=== PATIENT | female | born 1990 | race Caucasian/White ===

== ENCOUNTER 2021-05-02 06:34 | Inpatient (IN) ==
[2021-05-02] MEDS ORDERED: CYTOTEC ONE (06:41)
[2021-05-02] MEDS ORDERED: D5 1/2 NS 1,000 ML 1,000 ML IV ONE (06:42)
[2021-05-02] MEDS ORDERED: ANCEF 1 GRAM IV PREMIX* 1 G/50 ML BAG IV ONE (06:42)
[2021-05-02 07:02] VITALS: BP 119/78
[2021-05-02 07:58] LABS: BILIRUBIN,URINE NEGATIVE (NEGATIVE); BLOOD/HEMOGLOBIN,URINE 1+ (NEGATIVE); GLUCOSE, URINE NEGATIVE (NEGATIVE); KETONES,URINE NEGATIVE (NEGATIVE); LEUKOCYTE ESTERASE ,URINE NEGATIVE (NEGATIVE); NITRITES,URINE POSITIVE (NEGATIVE); PROTEIN,URINE NEGATIVE (NEGATIVE); UROBILINOGEN,URINE NORMAL (NORMAL)
[2021-05-02 08:11] LABS: COLOR,URINE YELLOW (YELLOW)
[2021-05-02 08:12] LABS: APPEARANCE,URINE SLIGHTLY HAZY (CLEAR); BACTERIA,URINE 3+ /HPF (NEGATIVE); RBC,URINE 0-2 /HPF (0-3); SQUAMOUS EPITHELIAL CELL,UR FEW /HPF (NEGATIVE)
== END 2021-05-02 10:42 | disposition left against medical advice (07) | DRG 833 ==
LOC: LD 06:34 → UNDODISIN 07:20
PROVIDERS: ADMIT Specialist; ATTEND Specialist